=== PATIENT | female | born 1945 | race Caucasian/White ===

== ENCOUNTER 2022-03-16 09:50 | Outpatient (CLI) | payer MEDICARE, BC, SELFPAY ==
[2022-03-16 14:03] LABS: Chloride* 105 mmol/L (96-114); Sodium* 141 mmol/L (135-149)
[2022-03-16 14:04] LABS: Potassium* 4.6 mmol/L (3.6-5.1)
[2022-03-16 14:06] LABS: Blood Urea Nitrogen* 23 mg/dL (7-30); Carbon Dioxide* 29 mmol/L (20-32); Cholesterol* 161 mg/dL (90-199); Creatinine* 1.2 mg/dL (0.5-1.5); Estimated Glomerular Filt Rate 46 ml/min
[2022-03-16 14:07] LABS: Calcium* 9.7 mg/dL (8.4-10.6); Glucose* 82 mg/dL (60-115); HDL Cholesterol* 81 mg/dL (>=50); LDL Cholesterol Calculated 64 mg/dL (<100); Triglycerides* 82 mg/dL (40-149)
[2022-03-16 14:56] LABS: Vitamin B12* 385 pg/mL (243-894)
== END 2022-03-16 09:51 | disposition home or self-care (01) ==
PROVIDERS: PCP Family Medicine; Visit Provider Family Medicine
DX: Z00.00 Encounter for general adult medical examination without abnormal findings (principal); E78.5 Hyperlipidemia, unspecified; N18.30 Chronic kidney disease, stage 3 unspecified; I10 Essential (primary) hypertension; Z13.29 Encounter for screening for other suspected endocrine disorder; Z13.21 Encounter for screening for nutritional disorder; E21.3 Hyperparathyroidism, unspecified
CPT/HCPCS: 80048; 80061; 82607; 84443

== ENCOUNTER 2023-02-21 12:23 | Outpatient (CLI) | payer MEDICARE, BC, SELFPAY | END 2023-02-21 12:24 | disposition home or self-care (01) | LOC: NFLDREF 02-24 14:41 | PROVIDERS: PCP Family Medicine; Referring Provider Family Medicine; Visit Provider Family Medicine | DX: R39.89 Other symptoms and signs involving the genitourinary system (principal) | CPT/HCPCS: 87086; 87186 ==

== ENCOUNTER 2023-07-12 09:41 | Outpatient (CLI) | payer MEDICARE, BC, SELFPAY | END 2023-07-12 09:42 | disposition home or self-care (01) | LOC: NFLDREF 07-22 12:38 | PROVIDERS: PCP Family Medicine; Referring Provider Family Medicine; Visit Provider Registered Nurse | DX: N39.0 Urinary tract infection, site not specified (principal) | CPT/HCPCS: 87086; 87186 ==

== ENCOUNTER 2024-01-04 09:40 | Outpatient (CLI) | payer MEDICARE, BC, SELFPAY | END 2024-01-04 09:41 | disposition home or self-care (01) | PROVIDERS: PCP Family Medicine; Visit Provider Family Medicine | DX: E78.00 Pure hypercholesterolemia, unspecified (principal); I10 Essential (primary) hypertension | CPT/HCPCS: 80048; 80061 ==

== ENCOUNTER 2024-01-12 13:21 | Outpatient (CLI) | payer MEDICARE, BC, SELFPAY ==
--- NOTE | 2024-01-12 13:45 | CRLHL7_ITS ---
For Patients: As a result of the 21st Century Cures Act, medical imaging exams and procedure reports are released immediately into your electronic medical record. You may view this report before your referring provider. If you have questions, please contact your health care provider. CLINICAL INDICATION: Left knee pain. COMPARISON STUDIES: None. TECHNICAL: Noncontrast MRI of the left knee. 1.5 godwin MRI scanner. Axial, sagittal and coronal T1, PD, PD FS and T2 FS images. FINDINGS: MEDIAL COMPARTMENT: Medial Meniscus: There is complex tearing of the posterior horn of the medial meniscus extending to posterior horn-body junction region of the meniscus. Meniscal tear is well seen on sagittal T2 fat-sat images number 9 through 14 of series 8. There is mild medial extrusion of the medial meniscal body. Anterior horn of meniscus intact. Articular Cartilage: Moderate thinning of medial compartment articular cartilage (grade 2/3). LATERAL COMPARTMENT: Lateral Meniscus: Fraying of the inner 3rd of the lateral meniscal body. Mild degeneration of the anterior horn of the meniscus. Articular Cartilage: Mild to moderate lateral compartment articular cartilage wear (grade 2). 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 Trochlear articular cartilage maintained. LIGAMENTS: Anterior Cruciate Ligament: Intact. Posterior Cruciate Ligament: Intact. MEDIAL COLLATERAL LIGAMENT AND POSTEROMEDIAL CORNER COMPLEX: Medial Collateral Ligament: Intact. Medial Head of the Gastrocnemius and Semimembranosus Tendons: Tendinosis of the distal semimembranosus tendon. LATERAL COLLATERAL LIGAMENT COMPLEX AND POSTEROLATERAL CORNER COMPLEX: Fibular Collateral Ligament: Normal. Distal Biceps Femoris Tendon Complex: Normal. Iliotibial Band: Normal. Popliteus Tendon: Normal. Posterolateral Corner Capsule: Normal. EXTENSOR MECHANISM: Distal Quadriceps Tendon: Normal. Patellar Tendon: Normal. Medial Patellar Retinaculum and Medial Patellofemoral Ligament: Normal. Lateral Patellar Retinaculum: Normal. Normal patellar alignment. No patella kevin. Normal trochlear depth. Normal lateral trochlear inclination. JOINT SPACE AND CAPSULE: Large joint effusion with synovitis. BONES AND SOFT TISSUES: Bone marrow edema within the posteromedial aspect of the medial tibial plateau may relate to contusion or stress change.No significant popliteal cyst.Subcutaneous edema is present. IMPRESSION: 1. Complex medial meniscal tear. 2. Bone marrow edema within the posteromedial aspect of the medial tibial plateau may relate to contusion or stress change. 3. Tricompartmental articular cartilage wear. 4. Large joint effusion with synovitis. 5. No ligament disruption. Dictated by Gilberto Phillips MD @ 01/13/2024 12:38:19 PM (Electronically Signed)
== END 2024-01-12 13:22 | disposition home or self-care (01) ==
LOC: MRI 13:23
PROVIDERS: PCP Family Medicine; Visit Provider Family Medicine
DX: M25.562 Pain in left knee (principal); S83.232A Complex tear of medial meniscus, current injury, left knee, initial encounter; M25.462 Effusion, left knee; S89.92XA Unspecified injury of left lower leg, initial encounter
CPT/HCPCS: 73721

== ENCOUNTER 2024-01-24 08:41 | Outpatient (CLI) | payer MEDICARE, BC, SELFPAY | END 2024-01-24 08:42 | disposition home or self-care (01) | LOC: LKVREF 08:43 | PROVIDERS: PCP Family Medicine; Visit Provider Family Medicine | DX: I10 Essential (primary) hypertension (principal) | CPT/HCPCS: 80048 ==

== ENCOUNTER 2024-02-02 06:57 | Day surgery (SDC) | payer MEDICARE, BC, SELFPAY ==
[2024-02-02] VITALS (10 sets, daily range): BP systolic 115–154; BP diastolic 54–71; PULSE 60–73; RESP 16–18; TEMP 36.1–36.5; O2SAT 94–98; BMI 30.6
[2024-02-02] MEDS: LACTATED RINGERS 1000 ML 1,000 ML 100 ML IV (07:30)
[2024-02-02] MEDS: SODIUM CHLORIDE 0.9 % (FLUSH) 10 ML SYRINGE IVF (07:30)
[2024-02-02] MEDS: CEFAZOLIN 2 GM INJ IVP (09:33)
[2024-02-02] MEDS: BUPIVACAINE 0.25% 30 ML INJECTION (10:00)
--- NOTE | 2024-02-02 10:07 | PM.ORPRC ---
Procedure Note Date of procedure: 02/02/24 Procedure: PREOPERATIVE DIAGNOSIS: Left knee medial meniscus tear, lateral meniscus tear POSTOPERATIVE DIAGNOSIS: Left knee medial meniscus root tear, lateral meniscus tear NAME OF OPERATION: Left knee arthroscopic partial medial and lateral meniscectomy SURGEON: Shawn Hicks MD [employer] ATTENDANT: Radha Lewis PA-C ANESTHESIA: Spinal ESTIMATED BLOOD LOSS: 0 mL COMPLICATIONS: None SPECIMENS: None DRAINS: None PREOPERATIVE ANTIBIOTICS: Ancef 1 gram INDICATIONS: The patient is a 78-year-old with a history of left knee medial pain. MRI scan is consistent with a medial meniscus tear. Despite appropriate nonoperative management, including activity modification, antiinflammatories, [id number] pain medication, bracing, physical therapy, and injections they continue to have pain and disability. Operative intervention was offered. The risks, benefits and expected outcomes were discussed in detail. These included but were not limited to: Infection, bleeding, injury to blood vessel or nerve, venous thromboembolism. All questions were answered to their satisfaction. PROCEDURE: Spinal anesthesia was administered. The patient was placed supine on the operating room table. The left lower extremity was prepped and draped in the usual sterile fashion. The limb was exsanguinated with the Jermaine bandage. The pneumatic tourniquet was inflated to 300 mmHg. A standard anterolateral portal was established. The arthroscope was introduced. The working portal was established anteromedially. Diagnostic arthroscopy was performed with findings as follows: The knee is quite tight and it is difficult to enter the medial and lateral compartments. The suprapatellar pouch is normal. Articular surface on the patella shows a focal area of grade 2/3 change proximally. Articular surface on the trochlea is normal. The medial gutter is normal. The medial compartment shows a focal area of grade 3 change on the central, weight-bearing portion of the medial femoral condyle, normal articular cartilage on the medial tibial plateau. The medial meniscus has a radial tear of the posterior horn from the leading edge to the capsule, just off the posterior tibial attachment (medial meniscus root tear). There is undersurface horizontal cleavage and radial tearing of the posterior horn. The notch shows the ACL to be intact. The lateral compartment shows normal articular cartilage on the lateral femoral condyle and lateral tibial plateau. The lateral meniscus shows degenerative tearing of the leading edge of the midbody. The lateral gutter is normal. The posterior horn of the medial meniscus was debrided to a stable base using a combination of baskets and estefany through both portals. The leading edge of the midbody of the lateral meniscus was debrided with the shaver. Unstable chondral flaps on the medial femoral condyle were debrided with the shaver. Arthroscopic instruments were removed, the portal sites were Steri-Stripped closed, the knee was infiltrated with 30 mL of 0.25% Marcaine without epinephrine. A dry dressing was applied, the tourniquet was released. Sponge and needle counts were correct x 2. The patient tolerated the procedure well. There were no apparent complications. They were carefully transferred to the hospital bed and taken to the postanesthesia care unit in satisfactory condition. PLAN: The patient will be discharged to home. They may weightbear as tolerates. Range of motion will be unrestricted. They will follow up in the office next week for a wound check. Given her age, the amount of meniscus resected today and presumed poor quality of the meniscus, she is not a great candidate for medial meniscus root repair. Therefore, if today's surgery does not provide the pain relief she is seeking, she may be a better candidate for either radiofrequency ablation or conversion to total knee arthroplasty.
--- NOTE | 2024-02-02 10:22 | W.ANESCHARGE ---
Anesthesia Charges Start Date/Time Anesthesia Start Date: 02/02/24 Anesthesia Start Time: 09:14 Stop Date/Time Anesthesia Stop Date: 02/02/24 Anesthesia Stop Time: 10:15 Summary Extremes of Age - Over 70 or under 1: [employer]
--- NOTE | 2024-02-02 10:25 | W.ANESCHARGE ---
Anesthesia Charges Start Date/Time Anesthesia Start Date: 02/02/24 Anesthesia Start Time: 09:14 Stop Date/Time Anesthesia Stop Date: 02/02/24 Anesthesia Stop Time: 10:15 Summary Extremes of Age - Over 70 or under 1: MDA
== END 2024-02-02 12:00 | disposition home or self-care (01) ==
LOC: OR 06:58
PROVIDERS: PCP Family Medicine; Visit Provider Orthopaedic Surgery
PROC: (CPT 29870; principal; 2024-02-02 09:15)
DX: M23.262 Derangement of other lateral meniscus due to old tear or injury, left knee (principal); M23.222 Derangement of posterior horn of medial meniscus due to old tear or injury, left knee
CPT/HCPCS: 29880; 01400; 99100; J0665; J0690; J1885; J2405; J2704; J3010; J7120

== ENCOUNTER 2024-03-12 11:15 | Outpatient (RCR) | payer MEDICARE, BC, SELFPAY ==
--- NOTE | 2024-02-13 12:57 | PT.OPE ---
[facility] Eval Start: 02/09/24 15:33 Freq: Status: Active Protocol: Document 02/13/24 12:54 CJT (Rec: 02/13/24 12:57 CJT [id number]) E-signed By Patrick Medellin PT Physical Therapy Outpatient Evaluation Insurance Information Recert Due Date 05/13/24 Insurance Name Medicare B Medical Diagnosis S/P L knee PMM, PLM Treating Diagnosis Orthopedic Aftercare L knee pain Referring Debra Zuniga Subjective Preferred Name Aidee Subjective Pt presents 11 days post-op L partial medial and lateral meniscectomy. Woke this AM with less swelling in the L LE . Walking is getting easier but stairs remain difficult. Pain has manageable unless she does too much. Ice has been helping with the pain. Currently taking Advil for pain management. Pt does a Zoom group exercise class twice weekly. Wondering what type of limitations she has at this time that may limit her participation in her course. Pain Comments 08/09 Date of Last Physician Visit 02/08/24 Date of Surgery (If applicable) 02/02/24 Current Work Status Retired Precautions Therapy Limitations/Systems Review Not Limited Objective Other/Pertinent Objective R knee ROM - 0-3-129 L knee ROM - 0-11-90 R Hip Strength Flexion - 5/5 MMT Abduction - 5/5 MMT Adduction - 5/5 MMT IR - 5/5 MMT ER - 5/5 MMT Extension - DNT L Hip Strength Flexion - 5/5 MMT Abduction - 5/5 MMT Adduction - 5/5 MMT IR - 5/5 MMT ER - 3/5 MMT *pain limits strength Extension - DNT R knee Extension - 5/5 MMT R Knee Flexion - 5/5 MMT L knee Extension - 5/5 MMT L knee Flexion - 5/5 MMT R ankle DF - 5/5 MMT L ankle DF - 5/5 MMT Palpation: pt reports pain/ tenderness with palpation to L medial knee joint line. Gait: antalgic gait favoring L ; reduced knee extension on L Swelling 10cm above: 44.5cm At patella: 41.5cm 10 cm below: 37.5cm Assessment Assessment/Impression Aidee is a very pleasant 78 year old female who presents to our clinic for evaluation and treatment s/p L knee partial medial and lateral meniscectomy. She is doing well at this time and managing her pain with occasional use of Aleve. L knee AROM quite limited at this time. I discussed with Aidee the importance of early focus on extension AROM, especially for her as she presents with limitations bilaterally. The nature of the pts condition was explained and all questions were answered to the pts satisfaction. Skilled PT services are medically necessary to address deficits and return patient to highest level of function. Recommend physical therapy sessions 1-2/ week for 4-6 weeks. Pt agrees with this plan. Printout of HEP was given for I completion and pt gives verbal understanding of each exercise . Primary Functional Limitations Walking, standing, stairs Plan of Care Rehabilitation Potential Excellent Physical Therapy Goals STG - To be completed in 2-3 weeks: 1. Pt will report consistent use of ice as well as elevation of surgical limb while resting to reduce inflammation and swelling. 2. Pt will demonstrate 90 degrees of knee flexion on surgical limb to reduce risk of contracture development and progress through rehabilitation as expected. 3. Pt to show appropriate use of all AD's with minimal gait deviations and no LOB with all ambulation to reduce risk of falls and restore normal gait mechanics. 4. Pt will demo full knee extension to reduce risk of contracture in posterior knee and allow for ease of ambulation. LTG - To be completed in 4-6 weeks: 1. Pt to be I with HEP so that they may I manage progression of symptoms. 2. Pt will demonstrate 125 degrees knee flexion on surgical limb so that they may descend steps without restrictions in ROM. 3. Pt will perform 10+ squats of full depth with good control over medial/lateral deviation of knees to show improved functional strength to assist with transfers. 4. Pt will demonstrate 5/5 MMT knee flexion/extension of surgical limb to provide greater support to knee joint and allow for ease of ambulation. 5. Pt will ambulate with no AD and minimal gait deviations so that they may return to walking safely and comfortably for exercise and pleasure. Coordination/Communication With Referral Source Treatment Plan/Direct Interventions Electrical Stimulation,Gait Training,Ice/Cold/ Vasopneumatic,Joint Mobilization,Manual Therapy, Neuromuscular Re-ed,Self-Care/ Home Management,Therapeutic Activities,Therapeutic Exercises Frequency/Duration 1-2/week for 4-6 weeks Patient Will Be Discharged From Therapy Completion of LTG(s),Skills Plateau,Independent w/HEP, Independently Progressing Evaluation Billing Untimed Code Treatment Minutes 45 PT Eval No Charge No Complexity Low Certification Information Initial Certification Date 02/13/24 Ending Certification Date 05/13/24 Provider Signature Required Yes Provider Signature Shows Agreement With POC & Medical Necessity Physician NPI Number Write NPI# Here Physician Comment/Change : Physician Signature & Date Requested Please Sign/Date Here
== END 2024-06-07 15:19 | disposition home or self-care (01) ==
PROVIDERS: PCP Family Medicine; Visit Provider Physician Assistant
DX: Z98.890 Other specified postprocedural states (principal); Z47.89 Encounter for other orthopedic aftercare; M25.562 Pain in left knee; Z51.89 Encounter for other specified aftercare
CPT/HCPCS: 97110; 97140; 97161

== ENCOUNTER 2024-06-30 10:00 | Outpatient (CLI) | payer MEDICARE, BC, SELFPAY | END 2024-06-30 10:01 | disposition home or self-care (01) | LOC: NFLDREF 07-02 02:18 | PROVIDERS: PCP Family Medicine; Referring Provider Family Medicine; Visit Provider Physician Assistant | DX: N39.0 Urinary tract infection, site not specified (principal) | CPT/HCPCS: 87086 ==

== ENCOUNTER 2024-07-11 12:18 | Outpatient (CLI) | payer MEDICARE, BC, SELFPAY | END 2024-07-11 12:19 | disposition home or self-care (01) | LOC: NFLDREF 07-13 04:22 | PROVIDERS: PCP Family Medicine; Referring Provider Family Medicine; Visit Provider Physician Assistant | DX: N39.0 Urinary tract infection, site not specified (principal) | CPT/HCPCS: 87086 ==

== ENCOUNTER 2024-11-27 12:12 | Outpatient (CLI) | payer MEDICARE, BC, SELFPAY | END 2024-11-27 12:13 | disposition home or self-care (01) | LOC: NFLDREF 11-29 15:03 | PROVIDERS: PCP Family Medicine; Referring Provider Family Medicine | DX: R39.9 Unspecified symptoms and signs involving the genitourinary system (principal); N39.0 Urinary tract infection, site not specified | CPT/HCPCS: 87086 ==

== ENCOUNTER 2025-01-09 11:29 | Outpatient (CLI) | payer MEDICARE, BC, SELFPAY | END 2025-01-09 11:30 | disposition home or self-care (01) | PROVIDERS: PCP Family Medicine; Visit Provider Family Medicine | DX: I10 Essential (primary) hypertension (principal); E78.00 Pure hypercholesterolemia, unspecified | CPT/HCPCS: 80048; 80061 ==